=== PATIENT | female | born 1980 | race Two or more races ===

== ENCOUNTER 2018-02-05 19:06 | Emergency (ER) | payer SELFPAY ==
[~2018-02-05] VITALS: Ht 160 cm; Wt 84.4 kg
[2018-02-05 19:17] VITALS: Ht 160 cm; Wt 84.4 kg
[2018-02-05 22:00] VITALS: BP 120/69
== END 2018-02-05 21:50 | disposition home or self-care (01) ==
LOC: ED 19:06
PROC: 3E023NZ Introduction of Analgesics, Hypnotics, Sedatives into Muscle, Percutaneous Approach (ICD-10-PCS; principal; 2018-02-05)
DX: S16.1XXA Strain of muscle, fascia and tendon at neck level, initial encounter (principal); S39.012A Strain of muscle, fascia and tendon of lower back, initial encounter; J45.909 Unspecified asthma, uncomplicated; V43.52XA Car driver injured in collision with other type car in traffic accident, initial encounter; Y92.410 Unspecified street and highway as the place of occurrence of the external cause
CPT/HCPCS: J1885